=== PATIENT | female | born 2000 | race Caucasian/White ===

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

== ENCOUNTER 2020-12-19 00:04 | Emergency (ER) | payer OTHER ==
[2020-12-19 00:15] VITALS: BP 112/72; PULSE 98; RESP 22; TEMP 98.2
--- NOTE | 2020-12-19 00:30 | ED ---
Abdominal Pain HPI - General Chief Complaint: Abdominal Pain Stated Complaint: Abd Pain Time Seen by Provider: 12/19/20 00:18 Source: patient Mode of arrival: ambulatory Limitations: no limitations - History of Present Illness MD Complaint: abdominal pain -: hour(s) Location: RLQ Radiation: none Severity: moderate Quality: cramping, sharp Consistency: constant Improves With: nothing Worsens With: nothing Associated Symptoms: nausea - Related Data LMP (females 10-50): last week Allergies Allergy/AdvReac Type Severity Reaction Status Date / Time No Known Allergies Allergy Verified 12/19/20 00:15 Review of Systems ROS Statement: Those systems with pertinent positive or pertinent negative responses have been documented in the HPI. ROS Other: All systems not noted in ROS Statement are negative. Constitutional: Denies: fever, chills Respiratory: Denies: cough, dyspnea Cardiovascular: Denies: chest pain, palpitations Gastrointestinal: Reports: abdominal pain, nausea. Denies: vomiting, diarrhea, constipation Genitourinary: Denies: dysuria, frequency, hematuria, discharge, abnormal menses Musculoskeletal: Denies: back pain Skin: Denies: rash Neurological: Denies: headache, weakness Hematological/Lymphatic: Denies: easy bleeding Past Medical History Past Medical History: No Reported History History of Any Multi-Drug Resistant Organisms: None Reported Past Surgical History: No Surgical Hx Reported Past Psychological History: No Psychological Hx Reported Smoking Status: Never smoker Past Alcohol Use History: Occasional Past Drug Use History: Marijuana General Exam Limitations: no limitations General appearance: alert, in no apparent distress Head exam: Present: atraumatic, normocephalic Eye exam: Present: normal appearance. Absent: scleral icterus, conjunctival injection ENT exam: Present: normal oropharynx Neck exam: Present: normal inspection Respiratory exam: Present: normal lung sounds bilaterally. Absent: respiratory distress, wheezes, rales, rhonchi, stridor Cardiovascular Exam: Present: regular rate, normal rhythm, normal heart sounds. Absent: systolic murmur, diastolic murmur, rubs, gallop GI/Abdominal exam: Present: soft, tenderness (Mild right lower quadrant tenderness no rebound or guarding), normal bowel sounds. Absent: distended, guarding, rebound, rigid, mass, pulsatile mass, hernia Extremities exam: Present: normal inspection, normal capillary refill. Absent: pedal edema, calf tenderness Back exam: Present: normal inspection. Absent: CVA tenderness (R), CVA tenderness (L) Neurological exam: Present: alert Skin exam: Present: warm, dry, intact, normal color. Absent: rash Course Vital Signs 12/19/20 00:12 Temperature 98.2 F Pulse Rate 98 Respiratory 22 Rate Blood Pressure 112/72 O2 Sat by Pulse 99 Oximetry Medical Decision Making - Lab Data Result diagrams: 12/19/20 00:41 12/19/20 00:41 Lab Results 12/19/20 12/19/20 12/19/20 Range/Units 00:41 00:41 00:41 WBC 9.3 (3.8-10.6) k/uL RBC 4.18 (3.80-5.40) m/uL Hgb 13.2 (11.4-16.0) gm/dL Hct 38.4 (34.0-46.0) % MCV 91.9 (80.0-100.0) fL MCH 31.4 (25.0-35.0) pg MCHC 34.2 (31.0-37.0) g/dL RDW 12.9 (11.5-15.5) % Plt Count 212 (150-450) k/uL MPV 7.7 Neutrophils % 83 % Lymphocytes % 7 % Monocytes % 7 % Eosinophils % 1 % Basophils % 1 % Neutrophils # 7.7 (1.3-7.7) k/uL Lymphocytes # 0.7 L (1.0-4.8) k/uL Monocytes # 0.6 (0-1.0) k/uL Eosinophils # 0.1 (0-0.7) k/uL Basophils # 0.0 (0-0.2) k/uL Sodium (137-145) mmol/L Potassium (3.5-5.1) mmol/L Chloride (98-107) mmol/L Carbon Dioxide (22-30) mmol/L Anion Gap mmol/L BUN (7-17) mg/dL Creatinine (0.52-1.04) mg/dL Est GFR (CKD-EPI)AfAm (>60 ml/min/1.73 sqM) Est GFR (CKD-EPI)NonAf (>60 ml/min/1.73 sqM) Glucose (74-99) mg/dL Calcium (8.4-10.2) mg/dL Total Bilirubin (0.2-1.3) mg/dL AST (14-36) U/L ALT (4-34) U/L Alkaline Phosphatase (38-126) U/L C-Reactive Protein (<1.0) mg/dL Total Protein (6.3-8.2) g/dL Albumin (3.5-5.0) g/dL Amylase (30-110) U/L Lipase (23-300) U/L Urine Color Yellow Urine Appearance Cloudy H (Clear) Urine pH 6.0 (5.0-8.0) Ur Specific Lorraine 1.016 (1.001-1.035) Urine Protein Trace H (Negative) Urine Glucose (UA) Negative (Negative) Urine Ketones 2+ H (Negative) Urine Blood Negative (Negative) Urine Nitrite Negative (Negative) Urine Bilirubin Negative (Negative) Urine Urobilinogen 2.0 (<2.0) mg/dL Ur Leukocyte Esterase Negative (Negative) Urine RBC <1 (0-5) /hpf Urine WBC 2 (0-5) /hpf Ur Squamous Epith Cells 14 H (0-4) /hpf Amorphous Sediment Rare H (None) /hpf Urine Bacteria Rare H (None) /hpf Hyaline Casts 1 (0-2) /lpf Urine Mucus Many H (None) /hpf Urine HCG, Qual Not Detected (Not Detectd) 12/19/20 Range/Units 00:41 WBC (3.8-10.6) k/uL RBC (3.80-5.40) m/uL Hgb (11.4-16.0) gm/dL Hct (34.0-46.0) % MCV (80.0-100.0) fL MCH (25.0-35.0) pg MCHC (31.0-37.0) g/dL RDW (11.5-15.5) % Plt Count (150-450) k/uL MPV Neutrophils % % Lymphocytes % % Monocytes % % Eosinophils % % Basophils % % Neutrophils # (1.3-7.7) k/uL Lymphocytes # (1.0-4.8) k/uL Monocytes # (0-1.0) k/uL Eosinophils # (0-0.7) k/uL Basophils # (0-0.2) k/uL Sodium 135 L (137-145) mmol/L Potassium 3.6 (3.5-5.1) mmol/L Chloride 101 (98-107) mmol/L Carbon Dioxide 24 (22-30) mmol/L Anion Gap 10 mmol/L BUN 10 (7-17) mg/dL Creatinine 0.71 (0.52-1.04) mg/dL Est GFR (CKD-EPI)AfAm >90 (>60 ml/min/1.73 sqM) Est GFR (CKD-EPI)NonAf >90 (>60 ml/min/1.73 sqM) Glucose 140 H (74-99) mg/dL Calcium 9.1 (8.4-10.2) mg/dL Total Bilirubin 0.7 (0.2-1.3) mg/dL AST 22 (14-36) U/L ALT 15 (4-34) U/L Alkaline Phosphatase 49 (38-126) U/L C-Reactive Protein 1.5 H (<1.0) mg/dL Total Protein 6.8 (6.3-8.2) g/dL Albumin 4.1 (3.5-5.0) g/dL Amylase 43 (30-110) U/L Lipase 42 (23-300) U/L Urine Color Urine Appearance (Clear) Urine pH (5.0-8.0) Ur Specific Lorraine (1.001-1.035) Urine Protein (Negative) Urine Glucose (UA) (Negative) Urine Ketones (Negative) Urine Blood (Negative) Urine Nitrite (Negative) Urine Bilirubin (Negative) Urine Urobilinogen (<2.0) mg/dL Ur Leukocyte Esterase (Negative) Urine RBC (0-5) /hpf Urine WBC (0-5) /hpf Ur Squamous Epith Cells (0-4) /hpf Amorphous Sediment (None) /hpf Urine Bacteria (None) /hpf Hyaline Casts (0-2) /lpf Urine Mucus (None) /hpf Urine HCG, Qual (Not Detectd) Disposition Clinical Impression: Ovarian cyst Disposition: HOME SELF-CARE Condition: Good Instructions (If sedation given, give patient instructions): Ovarian Cyst (ED) Is patient prescribed a controlled substance at d/c from ED?: No Referrals: None,Stated [Primary Care Provider] - 1-2 days
[2020-12-19 00:55] LABS: Basophils % (A) 1 %; Eosinophils # (A) 0.1 k/uL (0-0.7); Eosinophils % (A) 1 %; HCT 38.4 % (34.0-46.0); HGB 13.2 gm/dL (11.4-16.0); Lymphocytes # (A) 0.7 k/uL (1.0-4.8); Lymphocytes % (A) 7 %; MCH 31.4 pg (25.0-35.0); MCHC 34.2 g/dL (31.0-37.0); MCV 91.9 fL (80.0-100.0); Mean Platelet Volume 7.7; Monocytes # (A) 0.6 k/uL (0-1.0); Monocytes % (A) 7 %; Neutrophils # (A) 7.7 k/uL (1.3-7.7); Neutrophils % (A) 83 %; Platelet Count 212 k/uL (150-450); RBC 4.18 m/uL (3.80-5.40); RDW 12.9 % (11.5-15.5); WBC 9.3 k/uL (3.8-10.6)
--- NOTE | 2020-12-19 01:11 | US ---
EXAMINATION TYPE: US abdomen APPY DATE OF EXAM: 12/19/2020 COMPARISON: NONE CLINICAL HISTORY: attention RLQ. Sharp RLQ pain APPENDIX AP Diameter (normal < 6mm): Not visualized Is the appendix seen in its entirety from the proximal cecum to distal end: No. The appendix is not visualized Is there inflammatory changes or free fluid present: Free fluid is visualized in the right adnexa Incidental finding: Complex cystic area visualized right ovary measuring 2.6 x 2.3 x 2.4 cm. The righ t ovary has good arterial and venous blood flow- no torsion right ovary. Small amount of free fluid v isualized in the right adnexa IMPRESSION: Appendix not seen. No sign of thickened appendix. Complex cyst on the right ovary could be hemorrhagic cyst. Small amount of right adnexal free fluid. No evidence of ovarian torsion.
[2020-12-19 01:18] LABS: ALT 15 U/L (4-34); AST 22 U/L (14-36); African American GFR (CKD) >90 (>60 ml/min/1.73 sqM); Albumin 4.1 g/dL (3.5-5.0); Alkaline Phosphatase 49 U/L (38-126); Amylase 43 U/L (30-110); Anion Gap 10 mmol/L; Blood Urea Nitrogen 10 mg/dL (7-17); C Reactive Protein 1.5 mg/dL (<1.0); Calcium 9.1 mg/dL (8.4-10.2); Carbon Dioxide 24 mmol/L (22-30); Chloride 101 mmol/L (98-107); Glucose 140 mg/dL (74-99); Lipase 42 U/L (23-300); Non-African American GFR(CKD) >90 (>60 ml/min/1.73 sqM); Potassium 3.6 mmol/L (3.5-5.1); Sodium 135 mmol/L (137-145); Total Bilirubin 0.7 mg/dL (0.2-1.3); Total Protein 6.8 g/dL (6.3-8.2)
[2020-12-19 01:20] LABS: Amorphous Sediment,Urine Rare /hpf; Appearance,Urine Cloudy (Clear); Bacteria,Urine Rare /hpf; Bilirubin,Urine Negative (Negative); Blood,Urine Negative (Negative); Color,Urine Yellow; Glucose,Urine (UA) Negative (Negative); Hyaline Casts,Urine 1 /lpf (0-2); Ketones,Urine 2+ (Negative); Leukocyte Esterase,Urine Negative (Negative); Mucus,Urine Many /hpf; Nitrite,Urine Negative (Negative); Protein,Urine Trace (Negative); RBC,Urine <1 /hpf (0-5); Specific Gravity,Urine 1.016 (1.001-1.035); Squamous Epithelial Cell,Urine 14 /hpf (0-4); WBC,Urine 2 /hpf (0-5)
[2020-12-19] MEDS: KETOROLAC 15 MG/ML 1 ML VIAL IVP STA (01:43)
== END 2020-12-19 02:06 | disposition home or self-care (01) ==
LOC: EC 00:04
DX: N83.201 Unspecified ovarian cyst, right side (principal); F12.90 Cannabis use, unspecified, uncomplicated
CPT/HCPCS: 36415; 80053; 82150; 83690; 85025; 86140; 81001; 81025; 93976; 76705; 99284; 96374; J1885

== ENCOUNTER 2022-01-05 07:54 | Observation (INO) | payer OTHER ==
[2022-01-05] MEDS ORDERED: ONDANSETRON 4 MG/2 ML VIAL IVP STA (08:27)
[2022-01-05] MEDS ORDERED: SODIUM CHLORIDE 0.9% 1,000 ML IV ONE (08:27)
[2022-01-05] MEDS ORDERED: MORPHINE SULFATE 4 MG/ML SYRINGE IVP STA (08:27)
[2022-01-05 08:40] LABS: Basophils % (A) 1 %; Eosinophils # (A) 0.1 k/uL (0-0.7); Eosinophils % (A) 1 %; HCT 42.4 % (34.0-46.0); HGB 13.9 gm/dL (11.4-16.0); Lymphocytes # (A) 1.3 k/uL (1.0-4.8); Lymphocytes % (A) 18 %; MCH 29.4 pg (25.0-35.0); MCHC 32.9 g/dL (31.0-37.0); MCV 89.2 fL (80.0-100.0); Mean Platelet Volume 7.7; Monocytes # (A) 0.5 k/uL (0-1.0); Monocytes % (A) 7 %; Neutrophils % (A) 72 %; Platelet Count 291 k/uL (150-450); RBC 4.75 m/uL (3.80-5.40); RDW 11.9 % (11.5-15.5); WBC 6.9 k/uL (3.8-10.6)
[2022-01-05 08:55] LABS: ALT 19 U/L (4-34); AST 21 U/L (14-36); African American GFR (CKD) >90 (>60 ml/min/1.73 sqM); Albumin 4.6 g/dL (3.5-5.0); Alkaline Phosphatase 59 U/L (38-126); Anion Gap 12 mmol/L; Blood Urea Nitrogen 10 mg/dL (7-17); Calcium 9.5 mg/dL (8.4-10.2); Carbon Dioxide 21 mmol/L (22-30); Chloride 107 mmol/L (98-107); Glucose 103 mg/dL (74-99); Non-African American GFR(CKD) >90 (>60 ml/min/1.73 sqM); Potassium 3.9 mmol/L (3.5-5.1); Sodium 140 mmol/L (137-145); Total Bilirubin 0.4 mg/dL (0.2-1.3); Total Protein 7.3 g/dL (6.3-8.2)
[2022-01-05 09:10] LABS: HCG,Quantitative Serum 1563.4 mIU/mL
[2022-01-05 09:24] LABS: Appearance,Urine Clear (Clear); Bacteria,Urine Rare /hpf; Bilirubin,Urine Negative (Negative); Blood,Urine Small (Negative); Color,Urine Colorless; Glucose,Urine (UA) Negative (Negative); Ketones,Urine Negative (Negative); Leukocyte Esterase,Urine Negative (Negative); Nitrite,Urine Negative (Negative); PH, Urine 6.5 (5.0-8.0); Protein,Urine Negative (Negative); Specific Gravity,Urine 1.011 (1.001-1.035); Squamous Epithelial Cell,Urine 3 /hpf (0-4); Urobilinogen,Urine <2.0 mg/dL (<2.0); WBC,Urine <1 /hpf (0-5)
--- NOTE | 2022-01-05 10:12 | US ---
EXAMINATION TYPE: Transabdominal DATE OF EXAM: 01/05/2022 9:49 AM COMPARISON: NONE CLINICAL HISTORY: , vaginal bleeding. Back pain, cramping, dark discharge for one day EXAM PERFORMED: Transvaginal (TV) EXAM MEASUREMENTS: GESTATIONAL AGE / DATING Physician Established: Not yet established Dates by LMP: (6 weeks/1 days) EDC: 08/30/2022 Dates by Current Scan for: No IUP seen at this time MATERNAL ANATOMY Uterus: Mobility seen within endometrium possibly correlating with mobile blood. Right Ovary: Involuting shaped anechoic mass 1.2 x 1.0 x 1.1cm. Left Ovary: Complex cystic mass 2.6 x 2.1 x 3.0cm. Post CDS / Adnexa: Free fluid visualized in posterior cul-de-sac. No other abnormalities visualized within posterior cul-de-sac. Presence of free fluid: in posterior cul-de-sac Presence of corpus luteal cyst: Unknown Presence of subchorionic bleed: No GESTATION / SURVEY No IUP seen Date of LMP: 11/23/2021 IMPRESSION: No evidence for intrauterine gestational sac. Findings could relate to failed or early preg ector. Correlation with beta-hCG trending as well as close clinical follow-up is recommended.
--- NOTE | 2022-01-05 10:54 | ED ---
Female Urogenital HPI - General Chief complaint: Vaginal Bleeding Stated complaint: early , vaginal bleeding Time Seen by Provider: 01/05/22 08:05 Source: patient Mode of arrival: ambulatory Limitations: no limitations - History of Present Illness Initial comments: 21-year-old female who is approximately 5-6 weeks presents to [facility] department with upper quadrant abdominal pain. Her last mental cycle was November 23. She did have a positive home test about a week ago. She called and has an appointment scheduled with Dr. Lanza on February 14. She started having left-sided back pain yesterday which progressed to left lower quadrant abdominal pain today. States that significant. She did take ibuprofen and Tylenol at home for her pain without any improvement. She also started having some vaginal bleeding this morning. It is light spotting which is brown in color. She denies having any green or yellow discharge. No fevers. No abdominal trauma. No previous ultrasound or lab testing for this . Denies any issues with her bowel or bladder habits. No other alleviating, machine precision etcher modifying factors - Related Data Home Medications Medication Instructions Recorded Confirmed No Known Home Medications 01/05/22 01/05/22 Allergies Allergy/AdvReac Type Severity Reaction Status Date / Time No Known Allergies Allergy Verified 01/05/22 11:22 Review of Systems ROS Statement: Those systems with pertinent positive or pertinent negative responses have been documented in the HPI. ROS Other: All systems not noted in ROS Statement are negative. Past Medical History Past Medical History: No Reported History History of Any Multi-Drug Resistant Organisms: None Reported Past Surgical History: No Surgical Hx Reported Past Psychological History: No Psychological Hx Reported Smoking Status: Never smoker Past Alcohol Use History: Occasional Past Drug Use History: Marijuana - Past Family History Mother Family Medical History: No Reported History General Exam Limitations: no limitations Course Vital Signs 01/05/22 01/05/22 01/05/22 08:00 11:14 12:05 Temperature 98.3 F Pulse Rate 86 74 73 Respiratory 16 14 18 Rate Blood Pressure 132/84 123/80 130/84 O2 Sat by Pulse 98 100 100 Oximetry Medical Decision Making - Medical Decision Making Upon arrival patient is placed into room 20. She is in significant pain and therefore an IV is established. I did discuss medication menstruation and she is agreeable to opiate pain medication. 4 mg of morphine and 4 mg of Zofran is administered. I did perform a bedside ultrasound was performed however nothing significant visualized on physical exam. Laboratory studies are reviewed. Ultrasound demonstrates a complex cyst on the left ovary. As there is high concern for ectopic I did speak with Dr. Tillman- patient will be admitted for observation and repeat hemoglobin and beta Quant in the morning - Lab Data Result diagrams: 01/05/22 14:24 01/05/22 08:24 Lab Results 01/05/22 01/05/22 01/05/22 Range/Units 08:24 08:24 08:24 WBC 6.9 (3.8-10.6) k/uL RBC 4.75 (3.80-5.40) m/uL Hgb 13.9 (11.4-16.0) gm/dL Hct 42.4 (34.0-46.0) % MCV 89.2 (80.0-100.0) fL MCH 29.4 (25.0-35.0) pg MCHC 32.9 (31.0-37.0) g/dL RDW 11.9 (11.5-15.5) % Plt Count 291 (150-450) k/uL MPV 7.7 Neutrophils % 72 % Lymphocytes % 18 % Monocytes % 7 % Eosinophils % 1 % Basophils % 1 % Neutrophils # 5.0 (1.3-7.7) k/uL Lymphocytes # 1.3 (1.0-4.8) k/uL Monocytes # 0.5 (0-1.0) k/uL Eosinophils # 0.1 (0-0.7) k/uL Basophils # 0.0 (0-0.2) k/uL Sodium 140 (137-145) mmol/L Potassium 3.9 (3.5-5.1) mmol/L Chloride 107 (98-107) mmol/L Carbon Dioxide 21 L (22-30) mmol/L Anion Gap 12 mmol/L BUN 10 (7-17) mg/dL Creatinine 0.69 (0.52-1.04) mg/dL Est GFR (CKD-EPI)AfAm >90 (>60 ml/min/1.73 sqM) Est GFR (CKD-EPI)NonAf >90 (>60 ml/min/1.73 sqM) Glucose 103 H (74-99) mg/dL Calcium 9.5 (8.4-10.2) mg/dL Total Bilirubin 0.4 (0.2-1.3) mg/dL AST 21 (14-36) U/L ALT 19 (4-34) U/L Alkaline Phosphatase 59 (38-126) U/L Total Protein 7.3 (6.3-8.2) g/dL Albumin 4.6 (3.5-5.0) g/dL HCG, Quant 1563.4 mIU/mL Urine Color Urine Appearance (Clear) Urine pH (5.0-8.0) Ur Specific Kennan (1.001-1.035) Urine Protein (Negative) Urine Glucose (UA) (Negative) Urine Ketones (Negative) Urine Blood (Negative) Urine Nitrite (Negative) Urine Bilirubin (Negative) Urine Urobilinogen (<2.0) mg/dL Ur Leukocyte Esterase (Negative) Urine WBC (0-5) /hpf Ur Squamous Epith Cells (0-4) /hpf Urine Bacteria (None) /hpf Blood Type O Positive Blood Type Recheck No Previous Record Bld Type Recheck Status CABO Indicated Antibody Screen NEGATIVE Spec Expiration Date 01/08/2022 - 232301/05/22 Range/Units 08:53 WBC (3.8-10.6) k/uL RBC (3.80-5.40) m/uL Hgb (11.4-16.0) gm/dL Hct (34.0-46.0) % MCV (80.0-100.0) fL MCH (25.0-35.0) pg MCHC (31.0-37.0) g/dL RDW (11.5-15.5) % Plt Count (150-450) k/uL MPV Neutrophils % % Lymphocytes % % Monocytes % % Eosinophils % % Basophils % % Neutrophils # (1.3-7.7) k/uL Lymphocytes # (1.0-4.8) k/uL Monocytes # (0-1.0) k/uL Eosinophils # (0-0.7) k/uL Basophils # (0-0.2) k/uL Sodium (137-145) mmol/L Potassium (3.5-5.1) mmol/L Chloride (98-107) mmol/L Carbon Dioxide (22-30) mmol/L Anion Gap mmol/L BUN (7-17) mg/dL Creatinine (0.52-1.04) mg/dL Est GFR (CKD-EPI)AfAm (>60 ml/min/1.73 sqM) Est GFR (CKD-EPI)NonAf (>60 ml/min/1.73 sqM) Glucose (74-99) mg/dL Calcium (8.4-10.2) mg/dL Total Bilirubin (0.2-1.3) mg/dL AST (14-36) U/L ALT (4-34) U/L Alkaline Phosphatase (38-126) U/L Total Protein (6.3-8.2) g/dL Albumin (3.5-5.0) g/dL HCG, Quant mIU/mL Urine Color Colorless Urine Appearance Clear (Clear) Urine pH 6.5 (5.0-8.0) Ur Specific Kennan 1.011 (1.001-1.035) Urine Protein Negative (Negative) Urine Glucose (UA) Negative (Negative) Urine Ketones Negative (Negative) Urine Blood Small H (Negative) Urine Nitrite Negative (Negative) Urine Bilirubin Negative (Negative) Urine Urobilinogen <2.0 (<2.0) mg/dL Ur Leukocyte Esterase Negative (Negative) Urine WBC <1 (0-5) /hpf Ur Squamous Epith Cells 3 (0-4) /hpf Urine Bacteria Rare H (None) /hpf Blood Type Blood Type Recheck Bld Type Recheck Status Antibody Screen Spec Expiration Date Disposition Clinical Impression: LLQ pain, of unknown anatomic location, Vaginal bleeding in Disposition: ADMITTED IP TO THIS [facility] Condition: Stable Is patient prescribed a controlled substance at d/c from ED?: No Time of Disposition: 10:54 Decision to Admit Reason: Admit from EC Decision Date: 01/05/22 Decision Time: 10:54
[2022-01-05] MEDS ORDERED: ONDANSETRON 4 MG/2 ML VIAL IVP PRN (11:05)
[2022-01-05] MEDS ORDERED: NALOXONE 0.4 MG/ML 1 ML VIAL IV PRN (11:05)
[2022-01-05] MEDS: SODIUM CHLORIDE 0.9% 1,000 ML IV SCH ×2 (12:03→20:56)
[2022-01-05] MEDS: PRENATAL VIT-IRON-FOLIC ACID 1 EACH TABLET PO SCH (12:03)
[2022-01-05] MEDS ORDERED: ACETAMINOPHEN IV (For NPO) 1,000 MG in EMPTY BAG 1 BAG IVPB ONE (13:29)
[2022-01-05 14:52] LABS: Basophils % (A) 0 %; Eosinophils % (A) 0 %; HCT 37.1 % (34.0-46.0); HGB 12.3 gm/dL (11.4-16.0); Lymphocytes # (A) 1.3 k/uL (1.0-4.8); Lymphocytes % (A) 11 %; MCH 30.2 pg (25.0-35.0); MCV 91.4 fL (80.0-100.0); Mean Platelet Volume 7.6; Monocytes # (A) 0.6 k/uL (0-1.0); Monocytes % (A) 5 %; Neutrophils # (A) 9.9 k/uL (1.3-7.7); Neutrophils % (A) 83 %; Platelet Count 216 k/uL (150-450); RBC 4.05 m/uL (3.80-5.40)
[2022-01-05 15:41] VITALS: RESP 16
[2022-01-05] MEDS ORDERED: DOCUSATE 100 MG CAP PO PRN (18:14)
--- NOTE | 2022-01-05 18:32 | P.HPOB ---
History of Present Illness H&P Date: 01/05/22 Chief Complaint: Left lower quadrant pain This is a 21-year-old female 1 para 0 with a last menstrual period of 11/23/2021, who presented with a sudden onset of severe left lower quadrant pain that began at 620 this morning and woke her up from sleep. She stated she has had back pain all day yesterday and in the afternoon yesterday it turned into more cramping in the lower quadrant and more towards the left side. The cramping felt similar to what she has when she is on her menses. She did take a 200 mg ibuprofen yesterday morning and then took some Tylenol in the evening. Both of these did help with her pain. She did have some dark brown discharge today when she was urinating. She had a home test that was positive about 1 week ago. She is scheduled to see Dr. Lanza for the first time on 02/14/2022. Currently she states her pain has been manageable however when she got up to the bathroom she states she did have a lot of pressure when she urinated and did have some pain that was quite significant and made her almost pass out while she was trying to urinate. She was seen in the emergency room and beta hCG level was 1563. Her hemoglobin was stable at 13.9. Pelvic ultrasound showed a small uterus was some mobility within the endometrium, questionable mobile blood. The right ovary had a 1.2 cm involuting mass in the left ovary had a complex cyst measuring 2.6 x 2.1 x 3 cm. There was free fluid noted in the cul-de-sac but it was not quantified by the radiologist. No sac was seen within the uterus. OB history: . 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 She is unsure if she had a Pap smear but if she did it would've been within the last couple years with Dr. Britt. She has been with the same partner for approximately 3 years. Social history: She is single. 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 Review of Systems Constitutional: Denies chills, Denies fever Cardiovascular: Denies chest pain, Denies shortness of breath Respiratory: Denies cough Gastrointestinal: Reports abdominal pain, Reports constipation (Has not had a bowel movement today, but has been having daily bowel movements prior to this.) Genitourinary: Reports abnormal vaginal bleeding, Reports dysuria, Reports pelvic pain, Reports Musculoskeletal: Reports low back pain Past Medical History Past Medical History: No Reported History History of Any Multi-Drug Resistant Organisms: None Reported Past Surgical History: No Surgical Hx Reported Past Anesthesia/Blood Transfusion Reactions: No Reported Reaction Past Psychological History: No Psychological Hx Reported Smoking Status: Never smoker Past Alcohol Use History: Occasional Additional Past Alcohol Use History / Comment(s): No alcohol since finding out she is . Past Drug Use History: Marijuana Additional Drug Use History / Comment(s): States she has been using marijuana daily. - Past Family History Mother Family Medical History: No Reported History, Fibromyalgia Additional Family Medical History / Comment(s): Endometriosis Medications and Allergies Home Medications Medication Instructions Recorded Confirmed Type No Known Home Medications 01/05/22 01/05/22 History Allergies Allergy/AdvReac Type Severity Reaction Status Date / Time No Known Allergies Allergy Verified 01/05/22 11:22 Exam Osteopathic Statement: *. No significant issues noted on an osteopathic structural exam other than those noted in the History and Physical/Consult. Vital Signs Temp Pulse Pulse Resp BP BP Pulse Ox 01/05/22 15:41 98.3 F 81 16 108/64 01/05/22 13:00 98.2 F 61 18 133/83 99 01/05/22 12:05 73 18 130/84 100 01/05/22 11:14 74 14 123/80 100 01/05/22 08:00 98.3 F 86 16 132/84 98 Intake and Output 01/05/22 01/05/22 01/05/22 06:59 14:59 22:59 Other: # Voids 1 Weight 86.183 kg Gen.: Well-developed well-nourished female in no acute distress - OBG Physical Exam Abdomen: no guarding noted, no mass Abdomen detail: left lower quadrant: tenderness (Tenderness to palpation in the left lower quadrant and suprapubic area) Vulva: both: normal Vagina: normal moisture Uterus: normal size, tender Adnexa: On bimanual exam, cervical motion tenderness is noted and tenderness on the fun dus of the uterus is noted movement. No adnexal masses are palpated however there is some mild tenderness in the left adnexa. Adnexa: left: tenderness Results Result Diagrams: 01/05/22 14:24 01/05/22 08:24 Abnormal Lab Results - Last 24 Hours (Table) 01/05/22 01/05/22 01/05/22 Range/Units 08:24 08:53 14:24 WBC 12.0 H (3.8-10.6) k/uL Neutrophils # 9.9 H (1.3-7.7) k/uL Carbon Dioxide 21 L (22-30) mmol/L Glucose 103 H (74-99) mg/dL Urine Blood Small H (Negative) Urine Bacteria Rare H (None) /hpf Assessment and Plan (1) LLQ pain Current Visit: Yes Status: Acute Code(s): R10.32 - LEFT LOWER QUADRANT PAIN SNOMED Code(s): 783663193 (2) of unknown anatomic location Current Visit: Yes Status: Acute Code(s): O36.80X0 - W INCONCLUSIVE VIABILITY, UNSP SNOMED Code(s): 05775179 (3) Vaginal bleeding in Current Visit: Yes Status: Acute Code(s): O46.90 - ANTEPARTUM HEMORRHAGE, UNSPECIFIED, UNSPECIFIED TRIMESTER SNOMED Code(s): 07170346882994274 Plan: Admission for observation due to her pain. Repeat hemoglobin 6 hours after admission was 12.3 and her starting hemoglobin was 13.9. Will repeat CBC and beta hCG level tomorrow morning. I will allow her to eat currently. We'll start on a stool softener for constipation. Will obtain another urinalysis for dysuria and will obtain cultures for gonorrhea and chlamydia off the urine sample. Patient is advised that we are still uncertain if she has a normal or not at this time. She does not appear to have an acute abdomen. It is possible she may have had a ruptured cyst that caused some free fluid in her pelvis and caused the pain. We will know more tomorrow morning on which direction her beta hCG level is going. If it is going down, most likely she is having an early miscarriage. If it is going up, she will still need follow-up levels to determine whether this appears to be a normal intrauterine versus possible blighted ovum or ectopic. If her pain increases or hemoglobin drops significantly, she may need exploratory laparoscopy or laparotomy. We'll observe for now. Dr. Lanza will be here to see her tomorrow.
[2022-01-05 20:20] LABS: Amorphous Sediment,Urine Rare /hpf; Appearance,Urine Clear (Clear); Bacteria,Urine Rare /hpf; Bilirubin,Urine Negative (Negative); Blood,Urine Small (Negative); Color,Urine Yellow; Glucose,Urine (UA) Negative (Negative); Ketones,Urine Negative (Negative); Leukocyte Esterase,Urine Negative (Negative); Mucus,Urine Rare /hpf; Nitrite,Urine Negative (Negative); Protein,Urine Negative (Negative); RBC,Urine 1 /hpf (0-5); Specific Gravity,Urine 1.019 (1.001-1.035); Squamous Epithelial Cell,Urine 2 /hpf (0-4); Urobilinogen,Urine <2.0 mg/dL (<2.0); WBC,Urine 6 /hpf (0-5)
[2022-01-05] MEDS: ACETAMINOPHEN TAB 325 MG TAB PO PRN (23:31)
[2022-01-06] MEDS: SODIUM CHLORIDE 0.9% 1,000 ML IV SCH (04:24)
[2022-01-06 07:23] LABS: Basophils % (A) 0 %; Eosinophils # (A) 0.1 k/uL (0-0.7); Eosinophils % (A) 1 %; HCT 36.3 % (34.0-46.0); HGB 11.8 gm/dL (11.4-16.0); Lymphocytes # (A) 1.4 k/uL (1.0-4.8); Lymphocytes % (A) 17 %; MCH 29.7 pg (25.0-35.0); MCHC 32.6 g/dL (31.0-37.0); MCV 91.3 fL (80.0-100.0); Mean Platelet Volume 8.1; Monocytes # (A) 0.5 k/uL (0-1.0); Monocytes % (A) 6 %; Neutrophils % (A) 75 %; Platelet Count 210 k/uL (150-450); RBC 3.98 m/uL (3.80-5.40)
[2022-01-06 07:47] LABS: African American GFR (CKD) >90 (>60 ml/min/1.73 sqM); Anion Gap 8 mmol/L; Blood Urea Nitrogen 6 mg/dL (7-17); Calcium 8.3 mg/dL (8.4-10.2); Carbon Dioxide 24 mmol/L (22-30); Chloride 107 mmol/L (98-107); Glucose 87 mg/dL (74-99); Non-African American GFR(CKD) >90 (>60 ml/min/1.73 sqM); Potassium 3.8 mmol/L (3.5-5.1); Sodium 139 mmol/L (137-145)
[2022-01-06] MEDS: PRENATAL VIT-IRON-FOLIC ACID 1 EACH TABLET PO SCH (08:37)
[2022-01-06] MEDS: ACETAMINOPHEN TAB 325 MG TAB PO PRN (08:37)
[2022-01-06 12:35] VITALS: BP 123/82; PULSE 82; TEMP 98.5
--- NOTE | 2022-01-06 12:37 | P.DS ---
Providers Date of admission: 01/05/22 11:05 Expected date of discharge: 01/06/22 Attending physician: Nancy Lanza Primary care physician: Stated None - Discharge Diagnosis(es) (1) Spontaneous Current Visit: Yes Status: Acute Hospital Course: Patient presented yesterday to the emergency room with some pelvic pain. She had quantitative beta hCG 1500. The uterus was somewhat thickened but there was no gestational sac in the uterus. There was a collapsing cyst on the ovary versus ectopic though there was no ring of fire. Beta-hCG today is 800. Patient had some more vaginal bleeding today her pain is better. She is having some cramping. Her hemoglobin is stable and so her vital signs. Patient is now diagnosed with spontaneous and will be discharged home. I will keep her home from work today and follow her beta-hCGs weekly until 0. I discussed the findings with the patient and when to come back to the emergency room, including if she needs to have really feels lightheaded or dizzy or her pain increases significantly. She will follow up with me in a few weeks. Patient Condition at Discharge: Stable Plan - Discharge Summary New Discharge Prescriptions: New Ibuprofen [Motrin] 600 mg PO Q6HR PRN #30 tab PRN Reason: Mild Pain Or Fever >= 100.5 Discharge Medication List Ibuprofen [Motrin] 600 mg PO Q6HR PRN #30 tab 01/06/22 [Rx] Follow up Appointment(s)/Referral(s): None,Stated [Primary Care Provider] - 1-2 days Nancy Lanza DO [Doctor of Osteopathic Medicine] - 3 Weeks Discharge Disposition: HOME SELF-CARE
[2022-01-07 15:37] LABS: C. trachomatis,PCR Negative (Neg,Equiv); Chlamydia trachomatis Source Urine; N. gonorrhoeae,PCR Negative (Neg,Equiv); Neisseria Source Urine
== END 2022-01-06 13:50 | disposition home or self-care (01) ==
LOC: EC 07:54 → 4FBP 11:05
PROVIDERS: ADMIT Obstetrics & Gynecology; ATTEND Obstetrics & Gynecology
DX: O03.9 Complete or unspecified spontaneous abortion without complication (principal)
CPT/HCPCS: 96365; 96361; 96375; 99285; 36415; 86900; 86901; 80053; 80048; 85025 ×2; 86850; 81001; 84702 ×2; 87491; 87591; 76817; G0378 ×2; J2270; J2405; S0197 ×2; J0131

== ENCOUNTER 2024-01-15 14:43 | Emergency (ER) | payer OTHER ==
[2024-01-15 14:58] VITALS: RESP 18
--- NOTE | 2024-01-15 15:00 | ED ---
Female Urogenital HPI - General Source: patient, RN notes reviewed Mode of arrival: ambulatory Limitations: no limitations <Nany Jean - Last Filed: 01/15/24 14:59> <Leanna Lomas - Last Filed: 01/15/24 16:44> - General Chief complaint: Vaginal Bleeding Stated complaint: 8wks preg/bleeding Time Seen by Provider: 01/15/24 14:59 - History of Present Illness Initial comments: Quick note: 23-year-old A1 approximately 8 weeks gestation presenting to the ER with a chief complaint of bleeding and abdominal cramping. Patient states she started to experience heavy bleeding with clotting on Monday. She has been changing her pads hourly. She reports associated nausea. Has taken Midol with minor relief of symptoms. No other complaints. (Nany Jean) [id number] 23 year old female with no significant past medical history presents emergency minute complaint of lower abdominal cramping and vaginal bleeding that has been worsening over the past 3 days. Patient states he has been passing blood clots as well. She reports associated nausea with abdominal cramping. She has taken Midol with minimal relief of her symptoms. She contacted her OB this morning where they instructed her to report to the emergency room for further evaluation. She states that her symptoms feel similar to when she had a miscarriage a few months ago. (Leanna Lomas) - Related Data Previous Rx's Medication Instructions Recorded Ibuprofen [Motrin] 600 mg PO Q6HR PRN #30 tab 01/06/22 Allergies Allergy/AdvReac Type Severity Reaction Status Date / Time No Known Allergies Allergy Verified 01/15/24 14:57 Review of Systems ROS Other: All systems not noted in ROS Statement are negative. <Nany Jean - Last Filed: 01/15/24 14:59> ROS Other: All systems not noted in ROS Statement are negative. <Leanna Lomas - Last Filed: 01/15/24 16:44> ROS Statement: Those systems with pertinent positive or pertinent negative responses have been documented in the HPI. Past Medical History Past Medical History: No Reported History Additional Past Medical History / Comment(s): miscarriage. History of Any Multi-Drug Resistant Organisms: None Reported Past Surgical History: No Surgical Hx Reported Past Anesthesia/Blood Transfusion Reactions: No Reported Reaction Past Psychological History: No Psychological Hx Reported Smoking Status: Never smoker Past Alcohol Use History: Occasional Past Drug Use History: Marijuana - Past Family History Mother Family Medical History: No Reported History Additional Family Medical History / Comment(s): Endometriosis <Nany Jean - Last Filed: 01/15/24 14:59> General Exam Limitations: no limitations <Nany Jean - Last Filed: 01/15/24 14:59> General appearance: alert, in no apparent distress ENT exam: Present: normal exam, mucous membranes moist Neck exam: Present: normal inspection. Absent: tenderness, meningismus, lymphadenopathy Respiratory exam: Present: normal lung sounds bilaterally. Absent: respiratory distress, wheezes, rales, rhonchi, stridor Cardiovascular Exam: Present: regular rate, normal rhythm, normal heart sounds. Absent: systolic murmur, diastolic murmur, rubs, gallop, clicks GI/Abdominal exam: Present: soft, tenderness (lower abdominal, suprapubic ten derness to palpation), normal bowel sounds. Absent: distended, guarding, rebound, rigid Extremities exam: Present: normal inspection, full ROM, normal capillary refill. Absent: tenderness, pedal edema, joint swelling, calf tenderness Back exam: Present: normal inspection Skin exam: Present: warm, dry, intact, normal color. Absent: rash <Leanna Lomas - Last Filed: 01/15/24 16:44> - General Exam Comments Initial Comments: Visual Physical Exam Vital signs reviewed General: Well-appearing, nontoxic, no acute distress. Head: Normocephalic, atraumatic Eyes: PERRLA, EOMI ENT: Airway patent Chest: Nonlabored breathing Skin: No visual rash, normal skin tone Neuro: Alert and oriented 3 Musculoskeletal: No gross abnormalities (Nany Jean) Course Vital Signs 01/15/24 14:54 Temperature 98.9 F Pulse Rate 105 H Respiratory 18 Rate Blood Pressure 132/83 O2 Sat by Pulse 98 Oximetry Medical Decision Making <Nany Jean - Last Filed: 01/15/24 14:59> - Lab Data Result diagrams: 01/15/24 15:19 01/15/24 15:19 <Leanna Lomas - Last Filed: 01/15/24 16:44> - Medical Decision Making I performed the quick note portion of this chart. Electronically signed by Nany Jean PA-C (Nany Jean) Was pt. sent in by a medical professional or institution (CASSI Perez, ASSESSMENT TECHNICIAN, urgent care, hospital, or fci...) When possible be specific @ -Patient was advised by OB to report to the emergency department for further evaluation of of vaginal bleeding abdominal cramping during . Did you speak to anyone other than the patient for history (EMS, parent, family, police, friend...)? What history was obtained from this source @ -No Did you review nursing and triage notes (agree or disagree)? Why? @ -I reviewed and agree with nursing and triage notes Were old charts reviewed (outside hosp., previous admission, EMS record, old EKG, old radiological studies, urgent care reports/EKG's, fci records)? Report findings @ -No old charts were reviewed Differential Diagnosis (chest pain, altered mental status, abdominal pain women, abdominal pain men, vaginal bleeding, weakness, fever, dyspnea, syncope, headache, dizziness, GI bleed, back pain, seizure, CVA, palpatations, mental health, musculoskeletal)? @ -Differential Vaginal Bleeding: Spontaneous , threatened , molar , ectopic , bloody show, incompetent cervix, abruptioplacenta, placenta previa, uterine rupture, dysfunctional uterine bleeding, hemorrhage, uterine fibroids, this is not meant to be an all-inclusive list. EKG interpreted by me (3pts min.). @ -None X-rays interpreted by me (1pt min.). @ -None done CT interpreted by me (1pt min.). @ -None done U/S interpreted by me (1pt. min.). @ -Transabdominal ultrasound reveals no evidence of intrauterine with abnormality associated with the right ovary and lower uterine segment, represent in progress, correlation with beta-hCG and follow-up is recommended What testing was considered but not performed or refused? (CT, X-rays, U/S, labs)? Why? @ -None What meds were considered but not given or refused? Why? @ -None Did you discuss the management of the patient with other professionals (professionals i.e. CASSI Perez, ASSESSMENT TECHNICIAN, lab, RT, psych nurse, social service technician, geology faculty member, teacher, engineering officer, complex case manager)? Give summary @ -No Was smoking cessation discussed for >3mins.? @ -No Was critical care preformed (if so, how long)? @ -No Were there social determinants of health that impacted care today? How? (Homelessness, low income, unemployed, alcoholism, drug addiction, transportation, low edu. Level, literacy, decrease access to med. care, group home, rehab)? @ -No Was there de-escalation of care discussed even if they declined (Discuss DNR or withdrawal of care, Hospice)? DNR status @ -No What co-morbidities impacted this encounter? (DM, HTN, Smoking, COPD, CAD, Cancer, CVA, ARF, Chemo, Hep., AIDS, mental health diagnosis, sleep apnea, morbid obesity)? @ -None Was patient admitted / discharged? Hospital course, mention meds given and route, prescriptions, significant lab abnormalities, going to OR and other pertinent info. @ -Discharge. 23-year-old female with abdominal cramping and vaginal bleeding during . Patient was originally evaluated as a quick note where lab oratory studies were ordered in addition to urinalysis and ultrasound. On my evaluation the patient she is resting comfortably no signs of acute distress. Abdominal examination reveals mild suprapubic tenderness to palpation. Patient was given acetaminophen and Zofran pending laboratory results. She is in agreement with this plan. CBC and CMP unremarkable, hCG level of 3163.4, urinal ysis remarkable for blood, blood type is O+. Transabdominal ultrasound remarkable for no evidence of intrauterine at this time which is consistent with . Patient is provided with prescription to return to the emergency department 48 hours for repeat hCG testing. All questions an swered at bedside and strict return parameters wallace with the patient she is verbalized understanding. Case discussed with Dr. Marina Undiagnosed new problem with uncertain prognosis? @ -No Drug Therapy requiring intensive monitoring for toxicity (Heparin, Nitro, Insulin, Cardizem)? @ -No Were any procedures done? @ -No Diagnosis/symptom? @ -Complete Acute, or Chronic, or Acute on Chronic? @ -Acute Uncomplicated (without systemic symptoms) or Complicated (systemic symptoms)? @ -Uncomplicated Side effects of treatment? @ -No Exacerbation, Progression, or Severe Exacerbation? @ -No Poses a threat to life or bodily function? How? (Chest pain, USA, SC, pneumonia, PE, COPD, DKA, ARF, appy, cholecystitis, CVA, Diverticulitis, Homicidal, Suicidal, threat to staff... and all critical care pts) @ -No (Leanna Lomas) - Lab Data Lab Results 01/15/24 01/15/24 01/15/24 Range/Units 15:15 15:19 15:19 WBC 9.2 (3.8-10.6) k/uL RBC 4.51 (3.80-5.40) m/uL Hgb 13.0 (11.4-16.0) gm/dL Hct 40.6 (34.0-46.0) % MCV 90.0 (80.0-100.0) fL MCH 28.8 (25.0-35.0) pg MCHC 32.0 (31.0-37.0) g/dL RDW 12.4 (11.5-15.5) % Plt Count 278 (150-450) k/uL MPV 7.3 Neutrophils % 74 % Lymphocytes % 16 % Monocytes % 7 % Eosinophils % 1 % Basophils % 1 % Neutrophils # 6.8 (1.3-7.7) k/uL Lymphocytes # 1.5 (1.0-4.8) k/uL Monocytes # 0.7 (0-1.0) k/uL Eosinophils # 0.1 (0-0.7) k/uL Basophils # 0.0 (0-0.2) k/uL Sodium 141 (137-145) mmol/L Potassium 3.8 (3.5-5.1) mmol/L Chloride 108 H (98-107) mmol/L Carbon Dioxide 28 (22-30) mmol/L Anion Gap 5 mmol/L BUN 8 (7-17) mg/dL Creatinine 0.85 (0.52-1.04) mg/dL Est GFR (CKD-EPI)AfAm >90 (>60 ml/min/1.73 sqM) Est GFR (CKD-EPI)NonAf >90 (>60 ml/min/1.73 sqM) Glucose 95 (74-99) mg/dL Calcium 9.2 (8.4-10.2) mg/dL Total Bilirubin 0.7 (0.2-1.3) mg/dL AST 40 H (14-36) U/L ALT 44 H (4-34) U/L Alkaline Phosphatase 47 (38-126) U/L Total Protein 7.0 (6.3-8.2) g/dL Albumin 4.1 (3.5-5.0) g/dL HCG, Quant 3163.4 mIU/mL Urine Color Urine Appearance (Clear) Urine pH (5.0-8.0) Ur Specific [place] (1.001-1.035) Urine Protein (Negative) Urine Glucose (UA) (Negative) Urine Ketones (Negative) Urine Blood (Negative) Urine Nitrite (Negative) Urine Bilirubin (Negative) Urine Urobilinogen (<2.0) mg/dL Ur Leukocyte Esterase (Negative) Urine RBC (0-5) /hpf Urine WBC (0-5) /hpf Urine Bacteria (None) /hpf Urine Mucus (None) /hpf Blood Type O Positive Blood Type Recheck O Pos Bld Type Recheck Status No 01/15/24 Range/Units 15:19 WBC (3.8-10.6) k/uL RBC (3.80-5.40) m/uL Hgb (11.4-16.0) gm/dL Hct (34.0-46.0) % MCV (80.0-100.0) fL MCH (25.0-35.0) pg MCHC (31.0-37.0) g/dL RDW (11.5-15.5) % Plt Count (150-450) k/uL MPV Neutrophils % % Lymphocytes % % Monocytes % % Eosinophils % % Basophils % % Neutrophils # (1.3-7.7) k/uL Lymphocytes # (1.0-4.8) k/uL Monocytes # (0-1.0) k/uL Eosinophils # (0-0.7) k/uL Basophils # (0-0.2) k/uL Sodium (137-145) mmol/L Potassium (3.5-5.1) mmol/L Chloride (98-107) mmol/L Carbon Dioxide (22-30) mmol/L Anion Gap mmol/L BUN (7-17) mg/dL Creatinine (0.52-1.04) mg/dL Est GFR (CKD-EPI)AfAm (>60 ml/min/1.73 sqM) Est GFR (CKD-EPI)NonAf (>60 ml/min/1.73 sqM) Glucose (74-99) mg/dL Calcium (8.4-10.2) mg/dL Total Bilirubin (0.2-1.3) mg/dL AST (14-36) U/L ALT (4-34) U/L Alkaline Phosphatase (38-126) U/L Total Protein (6.3-8.2) g/dL Albumin (3.5-5.0) g/dL HCG, Quant mIU/mL Urine Color Light Red Urine Appearance Cloudy H (Clear) Urine pH 6.5 (5.0-8.0) Ur Specific [place] 1.037 H (1.001-1.035) Urine Protein 2+ H (Negative) Urine Glucose (UA) Negative (Negative) Urine Ketones Trace H (Negative) Urine Blood Large H (Negative) Urine Nitrite Negative (Negative) Urine Bilirubin Negative (Negative) Urine Urobilinogen 2.0 (<2.0) mg/dL Ur Leukocyte Esterase Moderate H (Negative) Urine RBC >182 H (0-5) /hpf Urine WBC 19 H (0-5) /hpf Urine Bacteria Rare H (None) /hpf Urine Mucus Few H (None) /hpf Blood Type Blood Type Recheck Bld Type Recheck Status Disposition <Nany Jean - Last Filed: 01/15/24 14:59> Is patient prescribed a controlled substance at d/c from ED?: No Time of Disposition: 16:32 <Leanna Lomas - Last Filed: 01/15/24 16:44> Clinical Impression: Complete , demise Disposition: HOME SELF-CARE Condition: Good Instructions (If sedation given, give patient instructions): Miscarriage (ED) Additional Instructions: Return to the emergency department for any new or worsening symptoms. Return to the ER for serial HcG testing in 48 hours. Recommend that you follow-up with OB for further evaluation. Referrals: Kishan Mares DO [Primary Care Provider] - 1-2 days
[2024-01-15 15:30] LABS: Basophils % (A) 1 %; Eosinophils # (A) 0.1 k/uL (0-0.7); Eosinophils % (A) 1 %; HCT 40.6 % (34.0-46.0); Lymphocytes # (A) 1.5 k/uL (1.0-4.8); Lymphocytes % (A) 16 %; MCH 28.8 pg (25.0-35.0); Mean Platelet Volume 7.3; Monocytes # (A) 0.7 k/uL (0-1.0); Monocytes % (A) 7 %; Neutrophils # (A) 6.8 k/uL (1.3-7.7); Neutrophils % (A) 74 %; Platelet Count 278 k/uL (150-450); RBC 4.51 m/uL (3.80-5.40); RDW 12.4 % (11.5-15.5); WBC 9.2 k/uL (3.8-10.6)
[2024-01-15 15:37] LABS: Appearance,Urine Cloudy (Clear); Bacteria,Urine Rare /hpf; Bilirubin,Urine Negative (Negative); Blood,Urine Large (Negative); Color,Urine Light Red; Glucose,Urine (UA) Negative (Negative); Ketones,Urine Trace (Negative); Leukocyte Esterase,Urine Moderate (Negative); Mucus,Urine Few /hpf; Nitrite,Urine Negative (Negative); PH, Urine 6.5 (5.0-8.0); Protein,Urine 2+ (Negative); RBC,Urine >182 /hpf (0-5); Specific Gravity,Urine 1.037 (1.001-1.035); WBC,Urine 19 /hpf (0-5)
[2024-01-15 15:50] LABS: ALT 44 U/L (4-34); AST 40 U/L (14-36); African American GFR (CKD) >90 (>60 ml/min/1.73 sqM); Albumin 4.1 g/dL (3.5-5.0); Alkaline Phosphatase 47 U/L (38-126); Anion Gap 5 mmol/L; Blood Urea Nitrogen 8 mg/dL (7-17); Calcium 9.2 mg/dL (8.4-10.2); Carbon Dioxide 28 mmol/L (22-30); Chloride 108 mmol/L (98-107); Glucose 95 mg/dL (74-99); Non-African American GFR(CKD) >90 (>60 ml/min/1.73 sqM); Potassium 3.8 mmol/L (3.5-5.1); Sodium 141 mmol/L (137-145); Total Bilirubin 0.7 mg/dL (0.2-1.3)
[2024-01-15 16:06] LABS: HCG,Quantitative Serum 3163.4 mIU/mL
--- NOTE | 2024-01-15 16:22 | US ---
EXAMINATION TYPE: Transabdominal DATE OF EXAM: 01/15/2024 3:54 PM COMPARISON: NONE for this . CLINICAL INDICATION: Female, 23 years old with history of cramping and bleeding.; Cramping and bleedi ng. Hx miscarriage. . EXAM PERFORMED: Transvaginal (TV) and Transabdominal (TA) EXAM MEASUREMENTS: GESTATIONAL AGE / DATING Physician Established: Not yet established Dates by LMP: (7 weeks/3 days) EDC: 08/30/2024 Dates by First Scan: This is first scan Dates by Current Scan for: No definite gestational sac seen at this time. MATERNAL ANATOMY Uterus: 8.7 x 6.1 x 4.4 cm. Upper endometrium measures 0.53 cm. Heterogeneous, indistinct area wit hout vascularity seen in lower uterus/cervix: 3.4 x 1.7 x 0.7 cm. Lower endo measures 1.0 cm in AP. Right Ovary: 3.8 x 1.9 x 2.0 cm. Area of mixed echogenicity and peripheral vascularity seen: 1.7 x 1. 6 x 1.5 cm. Left Ovary: 3.8 x 1.7 x 1.6 cm. Post CDS / Adnexa: Appear wnl Presence of free fluid: Fluid seen within Presence of corpus luteal cyst: Area of mixed echogenicity and peripheral vascularity seen right ov deepika: 1.7 x 1.6 x 1.5 cm. Presence of subchorionic bleed: No gestational sac seen. GESTATION / SURVEY CRL: Not seen MSD: Not seen IUP: No definite gestational sac seen at this time. Heterogeneous, indistinct area without vascularity seen in lower uterus/cervix: 3.4 x 1.7 x 0.7 cm. Date of LMP: 11/24/2023 Beta HcG (if available): Not available IMPRESSION: 1. There is no evidence of a intrauterine . 2. There are abnormalities associated with the right ovary and lower uterine segment as described abo ve. The findings could represent an in progress but the possibility of an ectopic is not excluded. Correlation with beta hCG and short-term follow-up is recommended. [facility], Workstation: VI, 01/15/2024 4:20 PM
[2024-01-15] MEDS: ACETAMINOPHEN TAB 325 MG TAB PO STA (16:26)
[2024-01-15] MEDS: ONDANSETRON 4 MG/2 ML VIAL IVP STA (16:31)
[2024-01-15 16:52] VITALS: BP 115/75; PULSE 77; TEMP 98.1
== END 2024-01-15 16:50 | disposition home or self-care (01) ==
LOC: EC 14:43
DX: O03.9 Complete or unspecified spontaneous abortion without complication (principal)
CPT/HCPCS: 36415; 76801; 76817; 80053; 81001; 84702; 85025; 86900; 86901; 96374; 99284

== ENCOUNTER → 2024-01-24 | Outpatient (CLI) | payer OTHER ==
[2024-01-24 17:04] LABS: T4, Free (Free Thyroxine) 1.05 ng/dL (0.80-1.80)
[2024-01-25 05:15] LABS: Cardiolipin Ab IgG Interp Negative (Negative); Cardiolipin Ab IgM Interp Negative (Negative); Cardiolipin IgM Antibody <1.5 U/mL
[2024-01-25 13:38] LABS: APTT 41 Sec(s) (<43); Dilute Russell Viper Venom 38 Sec(s) (<44)
== END | disposition home or self-care (01) ==
LOC: LABWHC1 10:56
PROVIDERS: ATTEND Obstetrics & Gynecology
DX: O03.9 Complete or unspecified spontaneous abortion without complication (principal)
CPT/HCPCS: 36415; 83036; 84439; 84443; 84702; 85613; 85730; 86146; 86147

== ENCOUNTER 2024-10-15 08:30 | Emergency (ER) | payer OTHER ==
--- NOTE | 2024-10-15 09:30 | ED ---
Nausea/Vomiting/Diarrhea HPI - General Stated complaint: Post op compharriet NVD Time Seen by Provider: 10/15/24 09:29 Source: patient, RN notes reviewed Mode of arrival: ambulatory Limitations: no limitations - History of Present Illness Initial comments: 24-year-old female presented the ER for evaluation of nausea, vomiting and diarrhea. Patient reports since she has been experience nausea, vomiting and diarrhea. She also reports a decreased appetite and states she is unable to keep anything down. Tried [id number] medications without relief of symptoms. Patient reports she feels like she is "floating". She denies any headache, head injury, visual disturbances or unilateral weakness. Patient reports she underwent endometriosis surgery on 09 24 24 completed at [facility]. Patient denies any fevers, chills, abdominal pain, abnormal vaginal bleeding or discharge, urinary frequency, dysuria, chest pain, shortness of breath or other complaints. - Related Data Previous Rx's Medication Instructions Recorded Ibuprofen [Motrin] 600 mg PO Q6HR PRN #30 tab 01/06/22 Ondansetron Odt [Zofran Odt] 4 mg PO Q8HR PRN #10 tab 10/15/24 Allergies Allergy/AdvReac Type Severity Reaction Status Date / Time No Known Allergies Allergy Verified 10/15/24 09:44 Review of Systems ROS Statement: Those systems with pertinent positive or pertinent negative responses have been documented in the HPI. ROS Other: All systems not noted in ROS Statement are negative. Past Medical History Past Medical History: No Reported History Additional Past Medical History / Comment(s): miscarriage. History of Any Multi-Drug Resistant Organisms: None Reported Past Surgical History: No Surgical Hx Reported Past Anesthesia/Blood Transfusion Reactions: No Reported Reaction Past Psychological History: No Psychological Hx Reported Smoking Status: Never smoker Past Alcohol Use History: Occasional Past Drug Use History: Marijuana - Past Family History Mother Family Medical History: No Reported History Additional Family Medical History / Comment(s): Endometriosis General Exam - General Exam Comments Initial Comments: Visual Physical Exam Vital signs reviewed General: Well-appearing, nontoxic, no acute distress. Head: Normocephalic, atraumatic Eyes: PERRLA, EOMI ENT: Airway patent Chest: Nonlabored breathing Skin: No visual rash, normal skin tone Neuro: Alert and oriented 3 Musculoskeletal: No gross abnormalities Limitations: no limitations General appearance: alert, in no apparent distress Respiratory exam: Present: normal lung sounds bilaterally. Absent: respiratory distress, wheezes, rales, rhonchi, stridor Cardiovascular Exam: Present: regular rate, normal rhythm, normal heart sounds. Absent: systolic murmur, diastolic murmur, rubs, gallop, clicks GI/Abdominal exam: Present: soft, tenderness (Lower abdomen), normal bowel sounds Extremities exam: Present: normal inspection, full ROM, normal capillary refill. Absent: tenderness, pedal edema, joint swelling, calf tenderness Neurological exam: Present: alert, oriented X3, CN II-XII intact Skin exam: Present: warm, dry, intact, normal color. Absent: rash Course Vital Signs 10/15/24 10/15/24 10/15/24 09:39 11:53 12:00 Temperature 98.0 F 98.7 F Pulse Rate 74 62 62 Respiratory 22 16 16 Rate Blood Pressure 136/87 117/82 118/91 O2 Sat by Pulse 97 99 98 Oximetry 10/15/24 14:00 Temperature Pulse Rate 61 Respiratory 12 Rate Blood Pressure 137/83 O2 Sat by Pulse 97 Oximetry Medical Decision Making - Medical Decision Making I performed the quick note portion of this chart. Electronically signed by Andrew Jean PA-C Was pt. sent in by a medical professional or institution ([facility], [employer] WORK[employer], urgent care, hospital, or usp...) When possible be specific @ -No Did you speak to anyone other than the patient for history (EMS, parent, family, police, friend...)? What history was obtained from this source @ -No Did you review nursing and triage notes (agree or disagree)? Why? @ -I reviewed and agree with nursing and triage notes Were old charts reviewed (outside hosp., previous admission, EMS record, old EKG, old radiological studies, urgent care reports/EKG's, usp records)? Report findings @ -No old charts were reviewed Differential Diagnosis (chest pain, altered mental status, abdominal pain women, abdominal pain men, vaginal bleeding, weakness, fever, dyspnea, syncope, headache, dizziness, GI bleed, back pain, seizure, CVA, palpatations, mental health, musculoskeletal)? @ -Differential Abdominal Pain Women:Appendicitis, Cholecystitis, diverticulosis, ischemic bowel, pancreatitis, hepatitis, UTI, gastroenteritis, AAA, incarcerated hernia, bowel obstruction, constipation, inflammatory bowel, hepatitis, peptic ulcer disease, splenic infarction, perforated viscus, vulvitis, ovarian torsion, PID, kidney stone, placenta abruption, this is not meant to be an all-inclusive list EKG interpreted by me (3pts min.). @ -None done X-rays interpreted by me (1pt min.). @ -None done CT interpreted by me (1pt min.). @ -CT abdomen pelvis negative for acute intra-abdominal process. U/S interpreted by me (1pt. min.). @ -None done What testing was considered but not performed or refused? (CT, X-rays, U/S, labs)? Why? @ -None What meds were considered but not given or refused? Why? @ -None Did you discuss the management of the patient with other professionals (professionals i.e. , PA, STRUCT[employer] STEEL TRAD[employer] WORKER, lab, RT, psych nurse, social media executive, systems spec, teacher, cavalry officer, window caser)? Give summary @ -No Was smoking cessation discussed for >3mins.? @ -No Was critical care preformed (if so, how long)? @ -No Were there social determinants of health that impacted care today? How? (Homelessness, low income, unemployed, alcoholism, drug addiction, transportation, low edu. Level, literacy, decrease access to med. care, long term, rehab)? @ -No Was there de-escalation of care discussed even if they declined (Discuss DNR or withdrawal of care, Hospice)? DNR status @ -No What co-morbidities impacted this encounter? (DM, HTN, Smoking, COPD, CAD, Can cer, CVA, ARF, Chemo, Hep., AIDS, mental health diagnosis, sleep apnea, morbid obesity)? @ -Endometriosis Was patient admitted / discharged? Hospital course, mention meds given and route, prescriptions, significant lab abnormalities, going to OR and other pertinent info. @ -Discharge. 24-year-old female presented the ER for evaluation of nausea vomiting and diarrhea. Vital signs stable. Workup initiated in triage. Laboratory studies obtained unimpressive. Urinalysis with 2+ ketones likely reactive. No evidence of infection. Urine hCG negative. Viral swab negative. Given focal abdominal tenderness, CT abdomen pelvis was obtained and negative for acute intra-abdominal process. Patient provided symptomatic treatment in the ER, with improvement. Patient tolerating oral intake with no reoccurring bouts of emesis in the emergency department. Upon reevaluation, patient e ducated on today's findings. Return parameters discussed. Patient discharged in stable condition with follow-up to PCP. Elvi prescribed. Patient verbally expressed understanding agree with care plan. Case discussed with ED attending, Marianne. Undiagnosed new problem with uncertain prognosis? @ -No Drug Therapy requiring intensive monitoring for toxicity (Heparin, Nitro, Insu yadi, Cardizem)? @ -No Were any procedures done? @ -No Diagnosis/symptom? @ -Nausea and vomiting Acute, or Chronic, or Acute on Chronic? @ -Acute Uncomplicated (without systemic symptoms) or Complicated (systemic symptoms)? @ -Uncomplicated Side effects of treatment? @ -No Exacerbation, Progression, or Severe Exacerbation? @ -No Poses a threat to life or bodily function? How? (Chest pain, [place], [place], pneumonia, PE, COPD, DKA, ARF, appy, cholecystitis, CVA, Diverticulitis, Homicidal, Suicidal, threat to staff... and all critical care pts) @ -No - Lab Data Result diagrams: 10/15/24 11:49 10/15/24 11:49 Lab Results 10/15/24 10/15/24 10/15/24 Range/Units 09:46 11:49 11:49 WBC 8.52 (4.50-10.00) 10*3/uL RBC 4.73 (4.10-5.20) 10*6/uL Hgb 14.3 (12.0-15.0) g/dL Hct 41.7 (37.2-46.3) % MCV 88.2 (80.0-97.0) fL MCH 30.2 (27.0-32.0) pg MCHC 34.3 (32.0-37.0) g/dL Plt Count 235 (140-440) 10*3/uL MPV 9.4 L (9.5-12.2) fL Immature Gran % (Auto) 0.2 % Neutrophils % 71.1 % Lymphocytes % 21.6 % Monocytes % 6.7 % Eosinophils % 0.2 % Basophils % 0.2 % Immature Gran # 0.02 (0.00-0.04) 10*3/uL Neutrophils # 6.05 (1.80-7.70) 10*3/uL Lymphocytes # 1.84 (0.90-5.00) 10*3/uL Monocytes # 0.57 (0.20-1.00) 10*3/uL Eosinophils # 0.02 L (0.04-0.35) 10*3/uL Basophils # 0.02 (0.00-0.10) 10*3/uL Sodium 140 (137-145) mmol/L Potassium 3.9 (3.5-5.1) mmol/L Chloride 105 (98-107) mmol/L Carbon Dioxide 25 (22-30) mmol/L Anion Gap 10 mmol/L BUN 8 (7-17) mg/dL Creatinine 0.75 (0.52-1.04) mg/dL Est GFR (CKD-EPI)AfAm >90 (>60 ml/min/1.73 sqM) Est GFR (CKD-EPI)NonAf >90 (>60 ml/min/1.73 sqM) Glucose 89 (74-99) mg/dL Plasma Lactic Acid Carlos (0.7-2.0) mmol/L Calcium 9.2 (8.4-10.2) mg/dL Total Bilirubin 0.8 (0.2-1.3) mg/dL AST 24 (14-36) U/L ALT 22 (4-34) U/L Alkaline Phosphatase 52 (38-126) U/L Total Protein 7.5 (6.3-8.2) g/dL Albumin 4.5 (3.5-5.0) g/dL Urine Color Urine Appearance (Clear) Urine pH (5.0-8.0) Ur Specific [place] (1.001-1.035) Urine Protein (Negative) Urine Glucose (UA) (Negative) Urine Ketones (Negative) Urine Blood (Negative) Urine Nitrite (Negative) Urine Bilirubin (Negative) Urine Urobilinogen (<2.0) mg/dL Ur Leukocyte Esterase (Negative) Urine HCG, Qual (Not Detectd) Influenza Type A (PCR) Not Detected (Not Detectd) Influenza Type B (PCR) Not Detected (Not Detectd) RSV (PCR) Not Detected (Not Detectd) SARS-CoV-2 (PCR) Not Detected (Not Detectd) 06/24/25 06/24/25 06/24/25 Range/Units 11:49 12:14 12:14 WBC (4.50-10.00) 10*3/uL RBC (4.10-5.20) 10*6/uL Hgb (12.0-15.0) g/dL Hct (37.2-46.3) % MCV (80.0-97.0) fL MCH (27.0-32.0) pg MCHC (32.0-37.0) g/dL Plt Count (140-440) 10*3/uL MPV (9.5-12.2) fL Immature Gran % (Auto) % Neutrophils % % Lymphocytes % % Monocytes % % Eosinophils % % Basophils % % Immature Gran # (0.00-0.04) 10*3/uL Neutrophils # (1.80-7.70) 10*3/uL Lymphocytes # (0.90-5.00) 10*3/uL Monocytes # (0.20-1.00) 10*3/uL Eosinophils # (0.04-0.35) 10*3/uL Basophils # (0.00-0.10) 10*3/uL Sodium (137-145) mmol/L Potassium (3.5-5.1) mmol/L Chloride (98-107) mmol/L Carbon Dioxide (22-30) mmol/L Anion Gap mmol/L BUN (7-17) mg/dL Creatinine (0.52-1.04) mg/dL Est GFR (CKD-EPI)AfAm (>60 ml/min/1.73 sqM) Est GFR (CKD-EPI)NonAf (>60 ml/min/1.73 sqM) Glucose (74-99) mg/dL Plasma Lactic Acid Carlos 0.6 L (0.7-2.0) mmol/L Calcium (8.4-10.2) mg/dL Total Bilirubin (0.2-1.3) mg/dL AST (14-36) U/L ALT (4-34) U/L Alkaline Phosphatase (38-126) U/L Total Protein (6.3-8.2) g/dL Albumin (3.5-5.0) g/dL Urine Color Light Yellow Urine Appearance Clear (Clear) Urine pH 6.0 (5.0-8.0) Ur Specific [place] 1.017 (1.001-1.035) Urine Protein Negative (Negative) Urine Glucose (UA) Negative (Negative) Urine Ketones 2+ H (Negative) Urine Blood Negative (Negative) Urine Nitrite Negative (Negative) Urine Bilirubin Negative (Negative) Urine Urobilinogen <2.0 (<2.0) mg/dL Ur Leukocyte Esterase Negative (Negative) Urine HCG, Qual Not Detected (Not Detectd) Influenza Type A (PCR) (Not Detectd) Influenza Type B (PCR) (Not Detectd) RSV (PCR) (Not Detectd) SARS-CoV-2 (PCR) (Not Detectd) - EKG Data -: EKG Interpreted by Me EKG Comments: EKG taken at 11: 38 showing sinus rhythm. No ST segment elevations or depressions. No T wave inversions. Ventricular rate 62, AR interval 113, QRS duration 98, QT/QTc 417/423. - Radiology Data Radiology results: report reviewed, image reviewed Disposition Clinical Impression: Nausea & vomiting Disposition: HOME SELF-CARE Condition: Stable Instructions (If sedation given, give patient instructions): Acute Nausea and Vomiting (ED) Additional Instructions: Follow-up with PCP. Return to the ER for any new or worsening concerns. Prescriptions: Ondansetron Odt [Zofran Odt] 4 mg PO Q8HR PRN #10 tab PRN Reason: Nausea Is patient prescribed a controlled substance at d/c from ED?: No Referrals: Kishan Mares DO [Primary Care Provider] - 1-2 days Time of Disposition: 13:50
[2024-10-15 10:29] LABS: Influenza A Not Detected (Not Detectd); Influenza B Not Detected (Not Detectd); RSV Not Detected (Not Detectd)
[2024-10-15] MEDS: ONDANSETRON 4 MG/2 ML VIAL IVP STA (11:51)
[2024-10-15] MEDS: SODIUM CHLORIDE 0.9% 1,000 ML IV ONE (11:52)
[2024-10-15 11:55] VITALS: TEMP 98.7
[2024-10-15 12:03] LABS: Basophils # (A) 0.02 10*3/uL (0.00-0.10); Basophils % (A) 0.2 %; Eosinophils # (A) 0.02 10*3/uL (0.04-0.35); Eosinophils % (A) 0.2 %; HCT 41.7 % (37.2-46.3); HGB 14.3 g/dL (12.0-15.0); Lymphocytes # (A) 1.84 10*3/uL (0.90-5.00); Lymphocytes % (A) 21.6 %; MCH 30.2 pg (27.0-32.0); MCHC 34.3 g/dL (32.0-37.0); MCV 88.2 fL (80.0-97.0); Mean Platelet Volume 9.4 fL (9.5-12.2); Monocytes # (A) 0.57 10*3/uL (0.20-1.00); Monocytes % (A) 6.7 %; Neutrophils # (A) 6.05 10*3/uL (1.80-7.70); Neutrophils % (A) 71.1 %; Platelet Count 235 10*3/uL (140-440); RBC 4.73 10*6/uL (4.10-5.20); RDW 11.8 % (11.5-14.5); WBC 8.52 10*3/uL (4.50-10.00)
[2024-10-15 12:19] LABS: ALT 22 U/L (4-34); AST 24 U/L (14-36); African American GFR (CKD) >90 (>60 ml/min/1.73 sqM); Albumin 4.5 g/dL (3.5-5.0); Alkaline Phosphatase 52 U/L (38-126); Anion Gap 10 mmol/L; Blood Urea Nitrogen 8 mg/dL (7-17); Calcium 9.2 mg/dL (8.4-10.2); Carbon Dioxide 25 mmol/L (22-30); Chloride 105 mmol/L (98-107); Glucose 89 mg/dL (74-99); Non-African American GFR(CKD) >90 (>60 ml/min/1.73 sqM); Potassium 3.9 mmol/L (3.5-5.1); Sodium 140 mmol/L (137-145); Total Bilirubin 0.8 mg/dL (0.2-1.3); Total Protein 7.5 g/dL (6.3-8.2)
[2024-10-15 12:21] LABS: Appearance,Urine Clear (Clear); Bilirubin,Urine Negative (Negative); Blood,Urine Negative (Negative); Color,Urine Light Yellow; Glucose,Urine (UA) Negative (Negative); Ketones,Urine 2+ (Negative); Leukocyte Esterase,Urine Negative (Negative); Nitrite,Urine Negative (Negative); Protein,Urine Negative (Negative); Specific Gravity,Urine 1.017 (1.001-1.035); Urobilinogen,Urine <2.0 mg/dL (<2.0)
--- NOTE | 2024-10-15 13:11 | CT ---
EXAMINATION TYPE: CT abdomen pelvis w con CT DLP: 1063.1 mGycm, Automated exposure control for dose reduction was used. DATE OF EXAM: 10/15/2024 1:06 PM COMPARISON: Ultrasound OB 01/15/2024, 01/05/2022, ultrasound abdomen 12/19/2020, transvaginal ultrasound 06/30/2016 CLINICAL INDICATION:Female, 24 years old with history of Left lower quadrant abdominal pain, n/v/d; L eft lower quadrant abd pain TECHNIQUE: Standard CT of the abdomen and pelvis following the administration of 100 cc of Isovue 3 00 IV contrast material. Coronal and sagittal reformats were performed. FINDINGS: LOWER CHEST: Unremarkable ABDOMEN LIVER: Unremarkable GALLBLADDER AND BILE DUCTS: Unremarkable. PANCREAS: Unremarkable. SPLEEN: Unremarkable. ADRENAL GLANDS: Unremarkable. KIDNEYS AND URETERS: No evidence of hydronephrosis or renal calculus. The kidneys enhance symmetrical ly. Contrast is demonstrated within both collecting systems and proximal ureters on the delayed phase . PELVIS BLADDER: Unremarkable REPRODUCTIVE: Unremarkable. ABDOMEN & PELVIS STOMACH AND BOWEL: Stomach is unremarkable. Mid duodenal diverticulum. No focal bowel wall thickening or surrounding inflammatory changes. No evidence of bowel obstruction. The appendix is within normal limits. PERITONEUM: No evidence of pneumoperitoneum or free fluid. VASCULATURE: No evidence of aortic aneurysm. MUSCULOSKELETAL: No acute osseous abnormalities LYMPH NODES: No evidence for lymphadenopathy. SOFT TISSUE/ABDOMINAL WALL: Unremarkable IMPRESSION: No CT evidence for acute abdominal/pelvic process. [facility], , 10/15/2024 1:09 PM
[2024-10-15 14:02] VITALS: BP 137/83; PULSE 61; RESP 12
== END 2024-10-15 14:01 | disposition home or self-care (01) ==
LOC: EC 08:30
DX: R11.2 Nausea with vomiting, unspecified (principal)
CPT/HCPCS: 36415; 93005; 80053; 83605; 85025; 81003; 81025; 87636; 74177; 99284; 96374; 96361; J2405; Q9967